=== PATIENT | male | born 1985 ===

== ENCOUNTER → 2019-02-08 | Outpatient (CLI) | payer OTHER ==
--- NOTE | 2019-02-09 19:14 | SLEEP ---
DATE OF STUDY: 02/08/2019 SLEEP STUDY REFERRING PHYSICIAN: ELIAS Childress HISTORY OF PRESENT ILLNESS: The patient is 33 years old, who weighs 165 pounds with a BMI of 25. The patient's Myton score was 13. The patient underwent a split night study performed at [facility]. During the night study, the patient spent 478 minutes in bed and slept for 299 minutes, with a low sleep efficiency of 63%. Sleep latency was 31 minutes with a REM latency of 307 minutes. Sleep architecture showed normal stage 1 sleep, increased stage 2 sleep, normal slow wave and reduced REM sleep. During the initial diagnostic portion of the study, the patient slept for 231 minutes. During that time, there were no obstructive, mixed or central apneas, but 23 hypopneas. The patient's apnea-hypopnea index was 6 per hour with a supine index of 14 per hour and a REM index of 10 per hour. The patient had respiratory effort related arousals throughout this testing. EKG monitoring revealed normal sinus rhythm, average heart rate of 75 beats per minute while awake and 57 beats per minute while asleep. Nocturnal oximetry study revealed an average oxygen saturation of 94% with a lowest of 86%. Throughout the night, the patient's saturations remained above 90%. No significant PLMs seen. The patient met the criteria for CPAP initiation. The patient was started on 5 cm water and titrated up to 7 cm water. At the final pressure, the patient slept for 45 minutes. The patient had supine as well as REM sleep. The patient's AHI was reduced to 0 per hour and oxygen saturation remained above 93%. The patient used small size nasal pillows. IMPRESSION: 1. Mild sleep apnea-hypopnea syndrome at an AHI of 6 per hour. 2. No clinically significant PLMs. 3. No clinically significant nocturnal hypoxia. RECOMMENDATIONS: 1. CPAP at 7 cm water completely eliminated the patient's sleep apnea and should be used on a nightly basis. 2. Follow up in 4-6 weeks to assess compliance with CPAP and to document clinical improvement. 3. Avoid [employer] depressants. 4. Cautioned regarding driving until symptoms of sleep apnea have resolved with the use of CPAP. ERICK PIÑA MD DR: LITO/arnoldo JOB#: [id number] / [id number] Michael Giraldo
== END | disposition home or self-care (01) ==
LOC: RT 18:58 → EDBD 18:58
PROVIDERS: ATTEND Internal Medicine Critical Care Medicine
DX: G47.33 Obstructive sleep apnea (adult) (pediatric) (principal); G47.10 Hypersomnia, unspecified
CPT/HCPCS: 95810